=== PATIENT | male | born 1935 | race Caucasian/White ===

== ENCOUNTER → 2017-07-08 | Outpatient (CLI) | payer OTHER ==
[~2017-07-08] MED LIST: AMLO5 PO; AMOX500 PO; Depo-Testo100 MG/1 M IM; EYE DROP TEARS15 ML BOTHEYES; FIBER POWDER PO; FISH1000 PO; HYDMETSO BOTHEYES; LEVO750 PO; LOSA25 PO; NAPR220 PO; OTC SLEEP AID PO; SILD25T PO; SIMV10 PO; TRIAMCINOLONE A TOP
== END ==
LOC: LAB 16:25
DX: J32.9 Chronic sinusitis, unspecified (principal)
CPT/HCPCS: 87070; 87205

== ENCOUNTER → 2017-09-27 | Outpatient (CLI) | payer OTHER ==
[2017-09-27 16:19] LABS: Bilirubin, Urine Neg (Neg); Blood, Urine Neg (Neg); Glucose Qualitative, Urine Neg (Neg); Ketones, Urine Neg (Neg); Leukocyte Esterase, Urine Neg (Neg); Nitrite, Urine Neg (Neg); Protein, Urine Neg (Neg); Specific Gravity, Urine 1.015 (1.003-1.022); Urobilinogen, Urine NORM (Normal)
[2017-09-27 16:24] LABS: Appearance, Urine Clear (Clear); Color, Urine Yellow (P-Yellow)
== END ==
LOC: LAB 16:14 → LAB SHORT 16:14
PROVIDERS: Nurse Practitioner Family
DX: R10.9 Unspecified abdominal pain (principal); R82.90 Unspecified abnormal findings in urine
CPT/HCPCS: 81003

== ENCOUNTER → 2019-01-08 | Outpatient (CLI) | payer MEDICARE | LOC: LAB 18:51 → LAB SHORT 18:51 | DX: R30.0 Dysuria (principal) | CPT/HCPCS: 87077; 87086; 87186 ==

== ENCOUNTER → 2019-03-12 | Outpatient (CLI) | payer MEDICARE | LOC: LAB SHORT 16:00 → LAB 16:00 → LAB FUT 03-12 18:35 | DX: N39.0 Urinary tract infection, site not specified (principal) | CPT/HCPCS: 87077; 87086; 87186 ==